=== PATIENT | female | born 1955 | race Hispanic/Latino ===

== ENCOUNTER 2018-01-25 06:36 | Day surgery (SDC) | payer OTHER ==
[2018-01-25] MEDS ORDERED: (Novolin R) Insulin Human Regular 100 units/ml vial IV ONE (07:18)
[2018-01-25] MEDS ORDERED: Sodium Chloride 0.9% 500 ML IV ONE (07:19)
[2018-01-25] MEDS ORDERED: (Novolin R) Insulin Human Regular 100 units/ml vial ONE (07:38)
[2018-01-25] MEDS ORDERED: Propofol 10 mg/ml Inj (20 ML) ONE (08:51)
--- NOTE | 2018-01-25 09:27 | CP.SDSHP ---
Same Day Surgery H & P - History Proposed Procedure: egd Pre-Op Diagnosis: dysphagia. heartburn - Previous Medical/Surgical History Cardiac: Hypertension, Other (hyperlipidemia, ) Endocrine/Metabolic: Diabetes, Obesity Neuro: TIA/CVA Previous Surgical History: L knee arthroscopy - Allergies Allergies: Allergies TOMATOES Allergy (Uncoded 01/25/18 07:13) ITCHING - Physical Exam Vital Signs: Vital Signs 01/25/18 07:13 Temperature 97 F L Pulse Rate 80 Respiratory 17 Rate Blood Pressure 134/85 O2 Sat by Pulse 98 Oximetry Mental Status: Alert & Oriented x3 Neuro: WNL Heart: WNL Lungs: WNL GI: WNL - Impression Impression: dysphagia. heartburn Pt. Evaluated Today:Candidate for Anesthesia & Procedure: Yes - Date & Time Date: 01/25/18 Time: 09:29 Short Stay Discharge - Short Stay Discharge Admitting Diagnosis/Reason for Visit: DYSPHAGIA / HEARTBURN Disposition: HOME/ ROUTINE Referrals: Ella Paez MD [Primary Care Provider] -
[2018-01-25] MEDS ORDERED: Pantoprazole 40 mg EC Tab PO STA ×2 (09:29→10:44)
[2018-01-25 11:48] VITALS: TEMP 98.6
[2018-01-25 11:49] VITALS: PULSE 79; RESP 16; O2SAT 99
[2018-01-25 12:01] VITALS: BP 142/78
== END 2018-01-25 11:00 | disposition home or self-care (01) ==
LOC: C.ENDO 06:36
PROVIDERS: ATTEND Internal Medicine Gastroenterology
DX: K21.0 Gastro-esophageal reflux disease with esophagitis (principal); K44.9 Diaphragmatic hernia without obstruction or gangrene; R12 Heartburn; K29.70 Gastritis, unspecified, without bleeding; I10 Essential (primary) hypertension; E11.9 Type 2 diabetes mellitus without complications; E66.9 Obesity, unspecified; E78.5 Hyperlipidemia, unspecified; Z86.73 Personal history of transient ischemic attack (TIA), and cerebral infarction without residual deficits
CPT/HCPCS: 43239; 82948; 88305; 88312; 88342; J2704; J7040